=== PATIENT | male | born 1955 | race Caucasian/White ===

== ENCOUNTER 2016-08-27 10:09 | Emergency (ER) | payer OTHER ==
[~2016-08-27 10:09] MED LIST: ALBUTEROL17 GM INH; ALPRAZOLAM0.25 MG PO; AMLODIPINE BESYL5 MG PO; ASPIRIN81 M2 PO; CLOPIDOGREL75 MG PO; DESYREL50 MG PO; ELIMITE60 G1 TP; FENOFIBRATE145 M1 PO; FLOMAX0.4 M1 PO; FLONASE 0.05% N16 G1; ISOSORBIDE MONO30 M1 PO; K-DUR20 ME1 PO; LANSOPRAZOLE30 MG PO; LASIX20 MG PO; LOSARTAN POTASS50 MG PO; METOPROLOL TAR25 MG PO; NAPROSYN-EC500 MG PO; NEURONTIN PO; NITROSTAT0.4 MG SL; OLANZAPINE10 MG PO; OMEPRAZOLE20 M1 PO; PREDNISONE PO; PRINIVIL20 M1 PO; PROPRANOLOL PO; SEROQUEL300 M1 PO; VITAMIN D400 UNI2 PO; ZANTAC300 MG PO; ZOLOFT PO; ZOLOFT100 MG PO
== END 2016-08-27 11:40 | disposition home or self-care (01) ==
LOC: SED 10:09
DX: J40 Bronchitis, not specified as acute or chronic (principal); I25.2 Old myocardial infarction; K21.9 Gastro-esophageal reflux disease without esophagitis; Z98.890 Other specified postprocedural states
CPT/HCPCS: 99282